=== PATIENT | female | born 1965 | race Caucasian/White ===

== ENCOUNTER → 2017-08-22 | Outpatient (CLI) | payer OTHER ==
[~2017-08-22] MED LIST: ACYCLOVIR 400400 MG PO; ASPIRIN81 M2 PO; B COMPLETE1 EAC1 PO; DAPSONE100 MG PO; DEXAMETHASONE 44 M1 PO; DIFLUCAN200 MG PO; KYPROLIS30 MG IVPB; LEVAQUIN 500 M500 M2 PO; MAGOX 400400 MG PO; PROTONIX40 M1 PO; REVLIMID10 MG PO; TAMIFLU75 MG PO; TYLENOL325 MG PO; VFEND 200 MG T200 M1 PO; VITAMIN D2000 UNIT PO; VITAMIN E100 UNI2 PO; VITAMIN E400 UNIT PO; ZOMETA4 MG/5 ML IV
== END ==
LOC: CAT 16:06
DX: Z13.6 Encounter for screening for cardiovascular disorders (principal)

== ENCOUNTER → 2021-07-03 | Outpatient (CLI) | payer BC, OTHER ==
[~2021-07-03] VITALS: Ht 157.5 cm; Wt 68.5 kg
[2021-07-03 13:24] VITALS: BP 123/72
[2021-07-03 13:40] LABS: HEMATOCRIT 34.8 % (37.0-47.0); HEMOGLOBIN 11.9 gm/dL (12.0-15.0); MCH 31.6 pg (26.0-34.0); MCHC 34.2 g/dL (28.0-37.0); MCV 92.4 fL (80.0-100.0); RBC 3.77 mil/uL (4.20-5.00); RDW 14.2 % (10.5-14.5); WBC 5.1 thou/uL (4.0-11.0)
[2021-07-03 13:50] LABS: INR 1.1; PROTIME 11.9 Seconds (10.5-12.1)
== END | disposition home or self-care (01) ==
LOC: SPEC 12:39
PROVIDERS: Radiology Diagnostic Radiology; ATTEND Internal Medicine
DX: Z45.2 Encounter for adjustment and management of vascular access device (principal); M19.90 Unspecified osteoarthritis, unspecified site; Z98.890 Other specified postprocedural states; Z79.899 Other long term (current) drug therapy; Z88.8 Allergy status to other drugs, medicaments and biological substances